=== PATIENT | male | born 1935 | race Caucasian/White ===

== ENCOUNTER 2018-01-15 05:19 | Day surgery (SDC) | payer MEDICARE ==
--- NOTE | 2018-01-14 11:49 | History and Physical - Ferro ---
CHIEF COMPLAINT/HISTORY OF CHIEF COMPLAINT: This patient with a history of intractable lumbar radiculopathy is presenting today for permanent implantation of a spinal cord stimulator. On 12/29/17 a spinal cord stimulator trial was conducted with 75+% pain control. All conservative therapies had failed. Based upon the success of the trial and the failure of his therapies, he is here for permanent implantation. PAST MEDICAL HISTORY: Cerebrovascular disease and coronary artery disease. PAST SURGICAL HISTORY: Knee surgery and coronary artery surgery. MEDICATIONS ON ADMISSION: List to be provided. ALLERGIES: SULFA. FAMILY/PSYCHOSOCIAL HISTORY: Social history - Noncontributory. Family history - Asthma. SYSTEMS REVIEW: The patient is appropriate in no acute distress. The remainder of the systems review is positive for glasses, cardiac arrhythmia, and degenerative arthritis. PHYSICAL EXAMINATION: Height is 5'10", weight is 200 pounds. No vital signs. HEENT: Within normal limits. LUNGS: Clear. HEART: Regular rate and rhythm. ABDOMEN: Nontender. MUSCULOSKELETAL: Examination of the musculoskeletal system shows diffuse tenderness and pain across the back extending into both hips. There is a lower extremity component across the outer front surface. Motor and sensory field evaluation lower extremities is intact. There are no obvious deficits. No weakness. NEUROLOGIC: Cranial nerves are intact. IMPRESSION: LUMBAR RADICULOPATHY, ICD-10 CODE M54.16 AND M54.17. PLAN: The patient is here for permanent spinal cord stimulator after successful trial and the failure of all other therapies with ongoing pain. The procedure will be considered outpatient, although an overnight stay will be evaluated. The potential risks, side effects, and complications have all been reviewed. JOB NUMBER: [id number] [facility]
[2018-01-15] MEDS ORDERED: BUPIVACAINE 0.5% W/EPI MPF 30 ML VIAL IVP ONE (05:20)
[2018-01-15] MEDS ORDERED: FENTANYL PF 100MCG/2ML VIAL IV ONE (05:20)
[2018-01-15] MEDS ORDERED: LIDOCAINE 1% W/EPI 1:200,000 MPF 30ML SQ ONE (05:20)
[2018-01-15] MEDS ORDERED: PROPOFOL 10 MG/ML VIAL IV ONE (05:20)
[2018-01-15] MEDS ORDERED: CEFAZOLIN 1G VIAL IM ONE (05:20)
[2018-01-15] MEDS ORDERED: 0.9 % SODIUM CHLORIDE 10 ML VIAL IVP ONE (05:20)
[2018-01-15] MEDS ORDERED: LIDOCAINE 2% MDV (20MG/ML) 20ML VIAL IV ONE (05:20)
[2018-01-15] MEDS ORDERED: MIDAZOLAM HCL 2MG/2ML VIAL IV ONE (05:20)
[2018-01-15] MEDS ORDERED: CEFAZOLIN 2 Gram 2 GM/50 ML BAG IVPB ONE (06:00)
[2018-01-15] MEDS ORDERED: FAMOTIDINE 20MG TABLET PO ONE (06:00)
[2018-01-15] MEDS ORDERED: METOCLOPRAMIDE 10 MG TABLET PO ONE (06:00)
[2018-01-15] MEDS ORDERED: ACETAMINOPHEN 1,000 MG/100 ML BTL IV ONE (06:00)
[2018-01-15] MEDS ORDERED: MECLIZINE 25 MG TABLET PO ONE (06:00)
--- NOTE | 2018-01-15 11:08 | Operative Note ---
DATE: 01/15/2018. PREOPERATIVE DIAGNOSIS: LUMBAR RADICULOPATHY, ICD-10 CODE M54.16 AND M54.17. PROCEDURES: 1. Fluoroscopically guided left epidural access at T11-12. Placement of spinal cord stimulator lead 1, a [employer] [place] [employer] Infineon 16 with 16 electrodes, positioned left T6. 2. Fluoroscopically guided left epidural access at T11-12. Placement of spinal cord stimulator lead 2, a [employer] [place] [employer] Infineon 16 with 16 electrodes, positioned right T6. 3. Complex programming of lead 1 over 20 minutes followed by complex programming of lead 2 over 20 minutes. 4. Incision, subcutaneous dissection, and anchoring of each lead to the supraspinous fascia with a [employer] locking anchor. 5. Incision, subcutaneous dissection, and creation of subcutaneous pouch at the right flank for generator identified as a [employer] programmable rechargeable WaveWriter generator. This site was picked by the patient. 6. Tunnelling between lead pouch and generator pouch. Interfacing each lead to the generator. 7. Placement of generator into pouch. Placement of leads into the pouch. 8. Closure of both incisions using Stratafix suture; #2-0 for the fascia and #3 -0 for the skin. Dermabond closure. 9. Complex recovery room programming of the internal generator for home use, two stimulators, for 20 minutes. SURGEON: Jose Dan D.O. INDICATIONS: This patient presents with a history of intractable lumbar radiculopathy. Due to the failure of therapy, a stimulator trial was conducted with 75 to 85 percent pain control. Due to the failure of all therapies and the success of the trial, the patient presents today for implantation of a permanent system. DESCRIPTION OF PROCEDURE: Intravenous lines, vital sign monitoring, and intravenous sedation by Anesthesia. Prepped and draped with sterile technique. Under imaging from the left, the epidural interspaces at 11-12 and 12-1 were both identified, marked and infiltrated. Using two curved Epimed needles with loss of resistance the spaces were accessed. At 11-12, spinal cord stimulator lead 1, a [employer] [place] [employer] Infineon 16 with 16 electrodes, was positioned slightly left of the midline at T6. With the epidural access at 11-12, the same technique was used, and spinal cord stimulator lead 2, a [employer] [place] [employer] Infineon 16 with 16 electrodes was positioned right of the midline at T6. Complex programming of lead 1 over 20 minutes was followed by complex programming of lead 2 over 20 minutes. This resulted in complete patterns of stimulation across the back and into the legs. The patient indicated we were in all of the areas of the pain. He was then given the options to implant, continue to program, or remove. He opted to implant. The questions were repeated with the same response. He was then re-sedated by Anesthesia. The skin above and below the needle was infiltrate with local. An incision was made and subcutaneous dissection was conducted to the supraspinous fascia. Each lead was then anchored to the supraspinous fascia with XOG locking anchor. At the right flank, the site picked by the patient for the generator, the skin was infiltrate. An incision was made and subcutaneous dissection was conducted to perform a pouch of suitable size and depth for the generator. Antibiotic irrigation and Bovie for hemostasis. A tunneling tool was used to carry the leads into the generator pouch, and then each lead was interfaced to the generator. The generator and its connections was placed into the pouch. The leads were coiled and placed into their own pouch. Both incisions were then closed with Stratafix suture; #2-0 for the fascia and #3-0 for the skin. Dermabond closure was then used to approximate the wound at each site. He was transported to the recovery room stable with no side effects from the procedure or the sedation. When fully awake and alert, complex programming was performed in the recovery room using the internal generator, again re- establishing stimulation of pain control to all of the appropriate areas. He was instructed on the use of the system as was his family. He was then prepared for discharge. DISCHARGE INSTRUCTIONS: 1. The sites are to remain clean and dry. No showering or bathing in any way that would disrupt dressings. If this happens, contact the clinic. Although the Dermabond will allow showering, he should not sit in water. 2. Standard medications to be resumed including continuing the antibiotic Levaquin 500 mg once a day for 14 days. 3. The office will contact the patient in 12 to 24 hours to set up an appointment in the next 7 to 10 days to evaluate the sites. Until then he is to keep his activities low. 4. All other instructions were provided including numbers to contact with problems. He was then discharged. JOB NUMBER: [id number] cc: Jerri Kiser
--- NOTE | 2018-01-16 20:13 | RADIOLOGY REPORT ---
EXAM: SPINE, 1 VIEW HISTORY: EPIDURAL LEAD PLACEMENT. TECHNIQUE: AP thoracic spine. FINDINGS: An epidural stimulator is present. The cephalad margin of the probe is at the level of T6. Alignment appears good. There is no evidence of immediate , complicating process. IMPRESSION: SATISFACTORY EPIDURAL LEAD PLACEMENT. JOB NUMBER: [id number] [facility]
== END 2018-01-15 09:50 | disposition home or self-care (01) ==
LOC: SUR 05:19
PROVIDERS: ATTEND Pain Medicine Interventional Pain Medicine
DX: M54.16 Radiculopathy, lumbar region (principal); M54.17 Radiculopathy, lumbosacral region; I10 Essential (primary) hypertension; I48.91 Unspecified atrial fibrillation; Z79.01 Long term (current) use of anticoagulants; E03.9 Hypothyroidism, unspecified; Z86.73 Personal history of transient ischemic attack (TIA), and cerebral infarction without residual deficits
CPT/HCPCS: 63650; 63685; 01936; 72020; 95972; J3010; J0690; C1820; C1883

== ENCOUNTER 2018-10-06 06:01 | Day surgery (SDC) | payer MEDICARE ==
[~2018-10-06 06:01] MED LIST: ACETAMINOPHEN 1,000 MG/100 ML BTL IVPB ONE; CEFAZOLIN 2 Gram 2 GM/50 ML BAG IVPB ONE; FAMOTIDINE 20MG TABLET PO ONE; MECLIZINE 25 MG TABLET PO ONE; METOCLOPRAMIDE 10 MG TABLET PO ONE
[2018-10-06] MEDS ORDERED: FENTANYL PF 100MCG/2ML VIAL IV ONE (06:02)
[2018-10-06] MEDS ORDERED: MIDAZOLAM HCL 2MG/2ML VIAL IV ONE (06:02)
[2018-10-06] MEDS ORDERED: PROPOFOL 10 MG/ML VIAL IV ONE (06:02)
[2018-10-06] MEDS ORDERED: LIDOCAINE 2% MDV (20MG/ML) 20ML VIAL IV ONE (06:02)
--- NOTE | 2018-10-06 06:33 | History and Physical - Ferro ---
CHIEF COMPLAINT/HISTORY OF CHIEF COMPLAINT: This patient presents with a history of an intractable lumbar radiculopathy. Due to the failure of therapy a spinal cord stimulator trial was conducted with a permanent implant performed on 01/15/18. Although initially the system appeared to be working well rapidly over the last number of months there has been a progression of pain to his lateral chest wall. An x-ray performed showed a lateral migration of one of the leads. Despite multiple efforts at reprogramming we were unsuccessful at regaining stimulation and pulling the stimulation out the site of his chest wall. For that reason he was given the option to remove or revise and he has opted to revise. PAST MEDICAL HISTORY: Cerebrovascular disease and coronary artery disease. PAST SURGICAL HISTORY: Knee surgery, coronary artery surgery, and spinal cord stimulator implant. MEDICATIONS ON ADMISSION: List to be provided. ALLERGIES: SULFA. FAMILY/PSYCHOSOCIAL HISTORY: Social history - Noncontributory. Family history - Asthma. SYSTEMS REVIEW: The patient is appropriate in no acute distress. The remainder of the system review is positive for glasses, cardiac arrhythmia, and degenerative arthritis. PHYSICAL EXAMINATION: Height is 5'10", weight is 200 pounds. No vital signs. HEENT: Within normal limits. LUNGS: Clear. HEART: Rapid and regular rate. ABDOMEN: Nontender. MUSCULOSKELETAL: Examination of the musculoskeletal system shows the incision for the leads approximating T11-T12. The generator is noted at the right flank. All of the incisions are intact. The pain pattern is low back with a bilateral lower extremity extension. Sensory mayo are intact. NEUROLOGIC: Cranial nerves are intact. There is no specific motor or sensory abnormality to the lower extremities. IMPRESSION: 1. LUMBAR RADICULOPATHY, ICD-10 CODE M54.16 AND M54.17. 2. NONFUNCTIONAL SPINAL CORD STIMULATORY. PLAN: The patient is here for a revision of a spinal cord stimulator which will involve removal and replacement of one maybe two leads and a possible generator revision. The procedure will be considered outpatient although an overnight stay will be noted. The potential risks, side effects, and complications have all been reviewed and discussed. JOB NUMBER: [id number] [facility]
[2018-10-06] MEDS ORDERED: RINGERS SOLUTION,LACTATED 1,000 ML IV ONE (06:50)
[2018-10-06] MEDS ORDERED: LIDOCAINE 1% W/EPI 1:100,000 MDV 20 ML VIAL SQ ONE (09:09)
[2018-10-06] MEDS ORDERED: BUPIVACAINE 0.5% W/EPI MPF 30 ML VIAL SQ ONE (09:09)
--- NOTE | 2018-10-06 17:20 | Operative Note ---
DATE OF SURGERY: 10/06/2018 PREOPERATIVE DIAGNOSES: 1. Lumbar radiculopathy. 2. Spinal cord stimulator 2 leads internal generator nonfunctional. OPERATION: 1. Fluoroscopic-guided incision, subcutaneous dissection, and removal of indwelling spinal cord stimulator from scar tissue both leads. 2. Incision, subcutaneous dissection, and removal of internal pulse generator right posterior gluteal margin. 3. Removal and replacement of right spinal cord stimulator identified as lead 1 [place] [employer] Infinion 16, 6 electrodes navigated and positioned left of midline adjacent to indwelling lead upper electrode T7. 4. Complex programming of indwelling lead 20 minutes followed by complex programming lead identified as 1 over 20 minutes resulting in complete pattern stimulation. 5. Anchoring of lead 1 spinal cord stimulator [place] [employer] Infinion 16 to supraspinous fascia using a new anchor and nonabsorbable suture. 6. Tunneling of lead 1 into generator pouch. Previous [employer] [place] [employer] generator replaced because of removing previous generator out of body cavity. Placement of new [place] [employer] programmable rechargeable WaveWriter generator onto field. Interface lead 1 to generator, interface previously indwelling lead to generator. Antibiotic irrigation and Bovie for hemostasis. Placement of generator back into pouch. Placement of original lead plus newly positioned lead into pouch. Closure of both incisions using Stratafix suture 2-0 fascia, 3-0 skin, Dermabond closure. 7. Complex recovery room programming internal generator home use 2 stimulators 20 minutes. PROCEDURE PERFORMED: Removal and replacement of one spinal cord stimulator [employer] [place] [employer] Infinion 16, 6 electrodes and removal and replacement of internal pulse generator [place] [employer] WaveWriter. ANESTHESIA PROVIDER: Lucas Hung INDICATION: This patient presents with a history of intractable lumbar radiculopathy. A previously implanted 2-lead mechanical engineer system appeared to initially work quite well. Over a period of months, one of the two leads appeared to be migrating to the right causing stimulation patterns into the chest wall. Multiple attempts at conservative options in terms of reprogramming failed to appreciably recapture pain and remove the stimulation patterns from the chest wall. Because of that failure, he was given the option to remove or replace. He opted to replace. PROCEDURE: Intravenous line, vital sign monitoring, IV sedation. patient positioned prone. Sterile prep, sterile technique. The generator pouch at the right posterior gluteal margin and the midline incision for the 2 leads was infiltrated with local at the midline. An incision was made at both sites. The generator was exteriorized and from the 2 leads. The midline incision was continued to be dissected. The 2 leads were free from the scar tissue. The laterally migrated lead was then freed from the anchor. The anchor and the lead were removed. A curved Epimed needle with loss of resistance was used to access the epidural space at 12-1. A spinal cord stimulator which will be identified as lead 1 [place] [employer] Infinion 16, 6 electrodes was positioned through the needle and advanced under imaging and positioned left of the midline left of the indwelling lead at T7. Complex programming of the new positioned lead identified as lead 1 along with the indwelling lead resulted in a complete pattern stimulation across the back and into the legs. Patient indicating we now had complete coverage of his pain. Programming 20 minutes for each of the 2 leads, 40 minutes total. The patient was given the option to implant the system or to remove. He opted to implant. He was then re-sedated. The pouches had already been formed. Antibiotic irrigation and Bovie for hemostasis. The new lead, lead 1, was tunneled into the generator pouch with the previous indwelling lead. A new generator, a [employer] programmable rechargeable WaveWriter was then placed onto the field. The previous generator had been completely removed and placed out of the pouch for a significant portion of time. It was felt appropriate to replace the generator for that reason. The 2 leads were then interfaced with the generator, and the generator and its connections were then placed into the pouch at the right posterior gluteal margin. The leads were then placed into the midline pouch and both incisions were closed using Stratafix suture, 2-0 fascia, and 3-0 skin. Dermabond closure was done to approximate the edges of both wounds. The patient was then transported to the recovery room stable. No side effects from the procedure or sedation. He is requesting to go home. He will be monitored until appropriate and then considered for discharge. DISCHARGE INSTRUCTIONS: 1. The sites will remain clean and dry. Now showering or bathing in any way that would disrupt dressings. If it happens, contact the clinic. 2. Standard medications resumed including the antibiotic Levaquin 500 mg once a day for 14 days. 3. The office to contact the patient in 12-24 hours to set up a time in 7-10 days for us to evaluate the sites. Until then, he is to keep his activities controlled. All other instructions were provided with numbers to contact if problems given. He will be seen at the office. KARAN
--- NOTE | 2018-10-07 09:57 | RADIOLOGY REPORT ---
EXAM: THORACOLUMBAR SPINE, SINGLE VIEW HISTORY: SPINAL CORD STIMULATOR REVISION OF LEADS. TECHNIQUE: A single view of the thoracolumbar spine was obtained. Comparison: 01/15/18. FINDINGS: A spinal cord stimulator is present with generator overlying the right lower quadrant. Leads project over the T5-T6 level. Right sided lead at T5 and left sided lead at T6. Scattered spondylosis. Cholecystectomy clips are noted. IMPRESSION: SPINAL CORD STIMULATOR LEADS AT THE T5-T6 LEVEL. JOB NUMBER: [id number] [facility]
== END 2018-10-06 10:12 | disposition home or self-care (01) ==
LOC: SUR 06:01
PROVIDERS: ATTEND Pain Medicine Interventional Pain Medicine
DX: M54.16 Radiculopathy, lumbar region (principal); E78.00 Pure hypercholesterolemia, unspecified; I48.91 Unspecified atrial fibrillation; Z79.01 Long term (current) use of anticoagulants; N40.0 Benign prostatic hyperplasia without lower urinary tract symptoms; F03.90 Unspecified dementia, unspecified severity, without behavioral disturbance, psychotic disturbance, mood disturbance, and anxiety; E03.9 Hypothyroidism, unspecified; Z95.0 Presence of cardiac pacemaker; G47.33 Obstructive sleep apnea (adult) (pediatric); Z86.73 Personal history of transient ischemic attack (TIA), and cerebral infarction without residual deficits
CPT/HCPCS: 72020; 95972; C1820; C1883; J7120